=== PATIENT | female | born 1990 | race Caucasian/White ===

== ENCOUNTER 2023-03-02 22:24 | Inpatient (IN) | payer OTHER ==
[2023-03-03] MEDS ORDERED: Ondansetron PF 4 MG/2 ML Vial IVP PRN (00:13)
[2023-03-03] MEDS ORDERED: Calcium Carbonate 500 MG ChewTAB PO PRN (00:13)
[2023-03-03] MEDS ORDERED: Ondansetron ODT 4 MG TAB PO PRN (00:13)
[2023-03-03 00:48] VITALS: BMI 37.3
[2023-03-03] MEDS: Ipratropium/Albuterol 3 ML NEB NEB SCH ×4 (01:00→19:44)
[2023-03-03] MEDS ORDERED: Arformoterol 15 MCG/2 ML NEB NEB SCH (01:00)
[2023-03-03] MEDS: Oseltamivir 75 MG CAP PO SCH ×2 (01:11→12:23)
[2023-03-03] MEDS: Multivitamins, Adult 10 ML, Folic Acid 1 MG, Thiamine HCl 100 MG in Dextrose 5 %-0.45 %... IV SCH (01:12)
[2023-03-03] MEDS: methylPREDNISolone Sod Succ 40 MG VIAL IVP SCH ×2 (01:12→12:23)
[2023-03-03] MEDS: Acetaminophen 325 MG TAB PO PRN ×2 (01:21→14:05)
[2023-03-03 04:23] LABS: #Monocytes 0.1 10x3/uL (0.0-1.1); #Neutrophils 9.9 10x3/uL (1.5-8.4); %Basophils 0.2 % (0.0-2.0); %Lymphocytes 2.9 % (18.0-47.0); %Monocytes 0.6 % (0.0-10.0); %Neutrophils 94.8 % (40.0-75.0); Hematocrit 35.8 % (34.9-44.5); Hemoglobin 12.2 g/dL (12.0-15.5); Mean Corpuscular HGB CONC 34.1 g/dL (32.0-36.0); Mean Corpuscular Hemoglobin 29.7 pg (27.0-33.0); Mean Corpuscular Volume 87.1 fl (81.6-98.3); Mean Platelet Volume 9.2 fl (7.4-10.4); Platelet Count 333 10x3/uL (150-450); RBC Distribution Width 13.7 % (11.5-14.5); Red Blood Cell (RBC) Count 4.11 10x6/uL (3.90-5.03); White Blood Cell (WBC) Count 10.5 10x3/uL (3.5-10.5)
[2023-03-03 04:39] LABS: Anion Gap 15 mmol/L (10-20); BUN (Urea Nitrogen) 4 mg/dL (7.0-18.7); Calc. Creatinine Clearance 193 mL/min (70-130); Calcium 8.5 mg/dL (7.8-10.44); Carbon Dioxide 15 mmol/L (22-29); Chloride 107 mmol/L (98-107); Estimated GFR 116; Glucose 216 mg/dL (70-105); Magnesium 1.9 mg/dL (1.6-2.6); Potassium 3.2 mmol/L (3.5-5.1); Sodium 134 mmol/L (136-145)
[2023-03-03] MEDS: D5 1/2 NS w/20 mEq KCL 1,000 ML IV SCH ×3 (06:41→23:12)
[2023-03-03] MEDS: Arformoterol 15 MCG/2 ML NEB NEB SCH ×2 (07:10→19:44)
[2023-03-03] MEDS: guaiFENesin ER 600 MG TAB PO SCH ×3 (08:53→23:51)
[2023-03-03] MEDS: Thiamine HCl 200 MG/2 ML VIAL SLOW IVP SCH (08:54)
[2023-03-03] MEDS ORDERED: Magnesium 2 GM/50 ML(in water) 2 GM in Premix 1 BAG IVPB SCH (09:15)
[2023-03-03] MEDS: Potassium Chloride 20 MEQ TAB PO SCH ×2 (09:36→23:12)
[2023-03-03] MEDS: Benzonatate 100 MG CAP PO PRN ×3 (09:37→23:51)
[2023-03-03] MEDS: Lactated Ringer's 1,000 ML IV SCH ×2 (09:37→16:19)
[2023-03-03 16:33] LABS: Magnesium 2.1 mg/dL (1.6-2.6)
[2023-03-03] MEDS ORDERED: Morphine 4 MG/ML VIAL SLOW IVP SCH (18:00)
[2023-03-04] MEDS: Ipratropium/Albuterol 3 ML NEB NEB SCH ×2 (01:13→07:49)
[2023-03-04] MEDS: methylPREDNISolone Sod Succ 40 MG VIAL IVP SCH (01:26)
[2023-03-04] MEDS: Oseltamivir 75 MG CAP PO SCH (01:26)
[2023-03-04] MEDS: Multivitamins, Adult 10 ML, Folic Acid 1 MG, Thiamine HCl 100 MG in Dextrose 5 %-0.45 %... IV SCH (01:28)
[2023-03-04] MEDS: Acetaminophen 325 MG TAB PO PRN ×2 (01:42→07:34)
[2023-03-04 06:10] LABS: #Eosinphils 0.2 10x3/uL (0.0-0.5); #Monocytes 0.5 10x3/uL (0.0-1.1); #Neutrophils 20.8 10x3/uL (1.5-8.4); %Basophils 0.2 % (0.0-2.0); %Eosinophils 0.8 % (0.0-6.0); %Lymphocytes 3.6 % (18.0-47.0); %Monocytes 2.1 % (0.0-10.0); %Neutrophils 92.6 % (40.0-75.0); Hematocrit 34.4 % (34.9-44.5); Hemoglobin 11.6 g/dL (12.0-15.5); Mean Corpuscular HGB CONC 33.7 g/dL (32.0-36.0); Mean Corpuscular Hemoglobin 29.7 pg (27.0-33.0); Mean Corpuscular Volume 88.2 fl (81.6-98.3); Mean Platelet Volume 9.5 fl (7.4-10.4); Platelet Count 345 10x3/uL (150-450); White Blood Cell (WBC) Count 22.5 10x3/uL (3.5-10.5)
[2023-03-04 06:13] LABS: Anion Gap 15 mmol/L (10-20); BUN (Urea Nitrogen) 5 mg/dL (7.0-18.7); Calc. Creatinine Clearance 211 mL/min (70-130); Calcium 8.4 mg/dL (7.8-10.44); Carbon Dioxide 18 mmol/L (22-29); Chloride 111 mmol/L (98-107); Estimated GFR 119; Glucose 127 mg/dL (70-105); Potassium 4.6 mmol/L (3.5-5.1); Sodium 139 mmol/L (136-145)
[2023-03-04] MEDS: Arformoterol 15 MCG/2 ML NEB NEB SCH (07:49)
[2023-03-04] MEDS: Thiamine HCl 200 MG/2 ML VIAL SLOW IVP SCH (08:16)
[2023-03-04] MEDS: guaiFENesin ER 600 MG TAB PO SCH (08:33)
[2023-03-04 09:21] VITALS: BP 113/71
[2023-03-04 13:10] VITALS: TEMP 98.7
== END 2023-03-04 13:11 | disposition home or self-care (01) | DRG 832 ==
LOC: CSHTELE 23:02 → INTOOBSV 23:02 → UNDOADMOB 23:02 → CSHTELE 03-03 00:13 → OBSVTOIN 03-04 11:28
PROVIDERS: ADMIT Family Medicine; ATTEND Internal Medicine
DX: O99.512 Diseases of the respiratory system complicating pregnancy, second trimester (principal); E87.1 Hypo-osmolality and hyponatremia; J45.901 Unspecified asthma with (acute) exacerbation; E87.20 Acidosis, unspecified; J10.1 Influenza due to other identified influenza virus with other respiratory manifestations; Z88.0 Allergy status to penicillin; Z98.890 Other specified postprocedural states; Z82.49 Family history of ischemic heart disease and other diseases of the circulatory system; Z83.3 Family history of diabetes mellitus; Z3A.15 15 weeks gestation of pregnancy; E87.6 Hypokalemia; D72.829 Elevated white blood cell count, unspecified; O99.282 Endocrine, nutritional and metabolic diseases complicating pregnancy, second trimester; Z79.899 Other long term (current) drug therapy
CPT/HCPCS: 36415; 76815; 80048; 83735; 85025; 94640; 94760; 96374; 96375; 96376; G0378; J2270; J2920; J3411; J3475; J3480; J7042; J7120; J7620; Q0162